=== PATIENT | male | born 1950 | race American Indian/Alaskan Native ===

== ENCOUNTER 2018-12-19 14:17 | Outpatient (CLI) | payer MEDICARE ==
--- NOTE | 2018-12-19 15:15 | RAD ---
3 VIEWS THORACIC SPINE: Date: 12/19/18 COMPARISON: None. HISTORY: Upper back pain for 5-6 days. FINDINGS: 3 views of the thoracic spine show normal height and alignment of the vertebral bodies without fractu re or subluxation. Moderate osteophytes are seen throughout the thoracic spine. IMPRESSION: Degenerative changes of the thoracic spine without acute osseous abnormality. POS: C
== END 2018-12-19 14:18 | disposition home or self-care (01) ==
LOC: SCSRAD 14:17
PROVIDERS: ATTEND Family Medicine
DX: M54.6 Pain in thoracic spine (principal); M47.814 Spondylosis without myelopathy or radiculopathy, thoracic region
CPT/HCPCS: 72072

== ENCOUNTER 2021-11-11 15:38 | Outpatient (CLI) | payer MEDICARE | END 2021-11-11 15:39 | disposition home or self-care (01) | LOC: SCSRAD 15:38 | PROVIDERS: ATTEND Family Medicine | DX: U07.1 COVID-19 (principal) | CPT/HCPCS: 71046 ==

== ENCOUNTER 2022-05-18 16:04 | Outpatient (CLI) | payer MEDICARE | END 2022-05-18 16:05 | disposition home or self-care (01) | LOC: SCSRAD 16:04 | PROVIDERS: ATTEND Family Medicine | DX: R05.3 Chronic cough (principal) | CPT/HCPCS: 71046 ==

== ENCOUNTER 2022-09-30 15:26 | Outpatient (CLI) | payer OTHER | END 2022-09-30 15:27 | disposition home or self-care (01) | LOC: SCSRAD 15:26 | PROVIDERS: ATTEND Family Medicine | DX: R05.3 Chronic cough (principal) | CPT/HCPCS: 71046 ==